=== PATIENT | female | born 1955 | race Caucasian/White ===

== ENCOUNTER → 2022-06-20 | Outpatient (CLI) | payer MEDICARE | LOC: RAD 08:13 | PROVIDERS: ATTEND Nurse Practitioner Family | DX: I27.20 Pulmonary hypertension, unspecified (principal); J44.9 Chronic obstructive pulmonary disease, unspecified; R91.8 Other nonspecific abnormal finding of lung field | CPT/HCPCS: 93306 ==

== ENCOUNTER → 2022-07-12 | Outpatient (CLI) | payer MEDICARE ==
[~2022-07-12] MED LIST: ALLOPURINOL100 MG PO; BENADRYL25 M1 PO; HYDROCHLOROTHIA25 MG; LEXAPRO20 MG PO; LISINOPRIL10 MG PO; MELOXICAM7.5 MG PO; METOPROLOL SUCC25 MG PO; MONTELUKAST SOD10 MG PO; NEURONTIN300 MG PO; QUERCETIN500 MG; SIMVASTATIN20 MG PO; TIZANIDINE HCL4 M1 PO; TRELEGY ELLIPT1 EACH; VITAMIN D
== END ==
LOC: CT 09:11
PROVIDERS: ATTEND Nurse Practitioner Family
DX: J42 Unspecified chronic bronchitis (principal); J98.4 Other disorders of lung; J30.9 Allergic rhinitis, unspecified; I27.20 Pulmonary hypertension, unspecified; E66.3 Overweight
CPT/HCPCS: 71250

== ENCOUNTER → 2022-07-21 | Day surgery (SDC) | payer MEDICARE ==
[2022-07-19 10:19] LABS: BASOPHILS % 0.3 % (0.0-1.0); EOSINOPHILS # (AUTO) 0.3 (0.0-0.4); EOSINOPHILS % 2.4 % (0.0-6.0); HEMATOCRIT 42.8 % (34.2-44.1); HEMOGLOBIN 14.1 g/dL (12.0-16.0); LYMPHOCYTES # (AUTO) 3.7 (1.0-3.2); LYMPHOCYTES % 33.9 % (18.0-39.1); MEAN CORPUSCULAR HEMOGLOBIN 31.9 pg (28-32); MEAN CORPUSCULAR HGB CONC 32.9 g/dL (31-35); MEAN CORPUSCULAR VOLUME 96.8 fL (81-99); MONOCYTES # (AUTO) 0.8 (0.2-0.8); MONOCYTES % 7.4 % (4.4-11.3); NEUTROPHILS % 55.3 % (38.7-80.0); PLATELET COUNT 223 x10e3/uL (140-360); RED BLOOD COUNT 4.42 x10e6/uL (3.6-5.1); RED CELL DISTRIBUTION WIDTH 13.2 % (11.7-14.4)
[~2022-07-21] MED LIST changes: +LACTATED RINGER'S 1,000 ML ONE; +LIDOCAINE HCL 2% LOCAL INJ 5 ML SDV VIAL INJ ONE; +MIDAZOLAM HCL 2 MG/2 ML VIAL ONE; +POVIDONE IODINE 0.05% 0.05 % ML PO ONE; +PROPOFOL IV EMULSION 10 MG/ML 20 ML VIAL ONE
[2022-07-21 13:28] VITALS: TEMP 97
[2022-07-21 13:48] VITALS: BP 132/86; PULSE 71; RESP 18; O2SAT 97
== END | disposition home or self-care (01) ==
LOC: OR 09:55
PROVIDERS: ATTEND Internal Medicine Gastroenterology
DX: Z15.09 Genetic susceptibility to other malignant neoplasm (principal); Z85.038 Personal history of other malignant neoplasm of large intestine; D12.0 Benign neoplasm of cecum; K29.70 Gastritis, unspecified, without bleeding; K44.9 Diaphragmatic hernia without obstruction or gangrene; K31.89 Other diseases of stomach and duodenum; Z98.0 Intestinal bypass and anastomosis status; J44.9 Chronic obstructive pulmonary disease, unspecified; I10 Essential (primary) hypertension; M06.9 Rheumatoid arthritis, unspecified; E78.5 Hyperlipidemia, unspecified; Z88.1 Allergy status to other antibiotic agents; Z88.0 Allergy status to penicillin; Z88.2 Allergy status to sulfonamides; Z91.048 Other nonmedicinal substance allergy status; Z01.810 Encounter for preprocedural cardiovascular examination; Z01.812 Encounter for preprocedural laboratory examination; Z99.81 Dependence on supplemental oxygen; Z79.1 Long term (current) use of non-steroidal anti-inflammatories (NSAID); Z79.899 Other long term (current) drug therapy; Z85.3 Personal history of malignant neoplasm of breast; Z92.3 Personal history of irradiation; Z87.891 Personal history of nicotine dependence; Z80.0 Family history of malignant neoplasm of digestive organs
CPT/HCPCS: 36415; 43239; 43251; 45384; 85025; 93005; J2001; J2250; J2704; J7121; 45378

== ENCOUNTER → 2023-03-20 | Outpatient (REF) | payer MEDICARE ==
[~2023-03-20] MED LIST changes: -LACTATED RINGER'S 1,000 ML ONE; -LIDOCAINE HCL 2% LOCAL INJ 5 ML SDV VIAL INJ ONE; -MIDAZOLAM HCL 2 MG/2 ML VIAL ONE; -POVIDONE IODINE 0.05% 0.05 % ML PO ONE; -PROPOFOL IV EMULSION 10 MG/ML 20 ML VIAL ONE
== END ==
LOC: RESP 08:34 → EDSTATUS 09:00
PROVIDERS: ATTEND Internal Medicine Critical Care Medicine
DX: R09.02 Hypoxemia (principal); J42 Unspecified chronic bronchitis; I26.99 Other pulmonary embolism without acute cor pulmonale; J98.4 Other disorders of lung; I27.20 Pulmonary hypertension, unspecified; J30.9 Allergic rhinitis, unspecified; E66.3 Overweight
CPT/HCPCS: 94060; 94727; 94729

== ENCOUNTER → 2023-07-09 | Outpatient (REF) | payer MEDICARE | LOC: CT 09:30 | PROVIDERS: ATTEND Nurse Practitioner Family | DX: R09.02 Hypoxemia (principal); I26.99 Other pulmonary embolism without acute cor pulmonale; J44.9 Chronic obstructive pulmonary disease, unspecified; J30.9 Allergic rhinitis, unspecified; E66.3 Overweight | CPT/HCPCS: 71250 ==

== ENCOUNTER 2023-07-30 13:35 | Outpatient (RCR) | payer MEDICARE | END 2023-08-26 | LOC: RESP 13:35 | PROVIDERS: ATTEND Internal Medicine Critical Care Medicine | DX: R09.02 Hypoxemia (principal); J44.9 Chronic obstructive pulmonary disease, unspecified; I26.99 Other pulmonary embolism without acute cor pulmonale; J30.9 Allergic rhinitis, unspecified; E66.3 Overweight | CPT/HCPCS: 94626 ×5; G0238 ×5 ==

== ENCOUNTER 2023-08-27 14:10 | Outpatient (RCR) | payer MEDICARE | END 2023-09-26 | LOC: RESP 14:10 | PROVIDERS: ATTEND Internal Medicine Critical Care Medicine | DX: R09.02 Hypoxemia (principal); I26.99 Other pulmonary embolism without acute cor pulmonale; J44.9 Chronic obstructive pulmonary disease, unspecified; J30.9 Allergic rhinitis, unspecified; E66.3 Overweight | CPT/HCPCS: 94626 ×7; G0238 ×7 ==

== ENCOUNTER 2023-10-25 12:47 | Outpatient (RCR) | payer MEDICARE | END 2023-10-27 | LOC: RESP 12:47 | PROVIDERS: ATTEND Internal Medicine Critical Care Medicine | DX: R09.02 Hypoxemia (principal); J44.9 Chronic obstructive pulmonary disease, unspecified; I26.99 Other pulmonary embolism without acute cor pulmonale; J30.9 Allergic rhinitis, unspecified; E66.3 Overweight | CPT/HCPCS: 94626 ×6; G0238 ×6 ==

== ENCOUNTER 2023-11-08 17:00 | Outpatient (RCR) | payer MEDICARE | END 2023-11-26 | LOC: RESP 17:00 | PROVIDERS: ATTEND Internal Medicine Critical Care Medicine | DX: R09.02 Hypoxemia (principal); J44.9 Chronic obstructive pulmonary disease, unspecified; I26.99 Other pulmonary embolism without acute cor pulmonale; J30.9 Allergic rhinitis, unspecified; E66.3 Overweight | CPT/HCPCS: 94626 ×2; G0238 ×2 ==

== ENCOUNTER → 2023-11-21 | Outpatient (REF) | payer MEDICARE | LOC: CT 10-24 13:24 | PROVIDERS: ATTEND Nurse Practitioner Family | DX: R09.02 Hypoxemia (principal); J44.9 Chronic obstructive pulmonary disease, unspecified; R91.8 Other nonspecific abnormal finding of lung field | CPT/HCPCS: 71250 ==

== ENCOUNTER → 2024-06-11 | Outpatient (REF) | payer MEDICARE | LOC: CT 13:21 | PROVIDERS: ATTEND Nurse Practitioner Family | DX: J98.4 Other disorders of lung (principal) | CPT/HCPCS: 71250 ==

== ENCOUNTER → 2024-12-11 | Outpatient (REF) | payer MEDICARE | LOC: CT 09:36 | PROVIDERS: ATTEND Nurse Practitioner Family | DX: J98.4 Other disorders of lung (principal) | CPT/HCPCS: 71250 ==